=== PATIENT | female | born 1980 | race Caucasian/White ===

== ENCOUNTER 2020-06-06 13:55 | Emergency (ER) | payer OTHER ==
--- NOTE | 2020-06-06 14:20 | EDM.PDOC ---
ED HPI GENERAL MEDICAL PROBLEM - General Chief Complaint: Lower Extremity Injury/Pain Stated Complaint: JOSEFINA MCADAMSY TOE Time Seen by Provider: 06/06/20 14:05 Source of Information: Reports: Patient History Limitations: Reports: No Limitations - History of Present Illness INITIAL COMMENTS - FREE TEXT/NARRATIVE: Patient comes into the emergency department with complaint of a left foot injury. Patient states that she was at home and caught the edge of the wall on her left foot causing a popping and cracking sensation of her fifth left foot digit. Patient states that she felt pain and discomfort right away. She was able to continue ambulating on it however she states that the throbbing and numbness sensation began instantly. She states that it apply ice right away and elevated. She presented to the emergency department for further evaluation for she noticed that she is unable to move it independently and she also notices that some deformity. Patient other injuries or concerns. Patient states she is been relatively healthy and denies any active COVID 19 symptoms or any recent testing. She also denies any chest discomfort, shortness of breath, numbness or tingling, blurred vision, dizziness, lightheadedness, or peripheral edema. Onset: Sudden Location: Reports: Lower Extremity, Left Quality: Reports: Ache, Throbbing Severity: Mild Improves with: Reports: Immobilization Worsens with: Reports: Movement Context: Reports: Activity Associated Symptoms: Reports: No Other Symptoms Left Toe-Little Pain Score (Numeric/FACES): 2 - Related Data Allergies Allergy/AdvReac Type Severity Reaction Status Date / Time No Known Allergies Allergy Verified 06/06/20 14:19 Home Meds: Home Meds . [No Known Home Meds] 06/06/20 [History] ED ROS GENERAL - Review of Systems Review Of Systems: Comprehensive ROS is negative, except as noted in HPI. Constitutional: Reports: No Symptoms HEENT: Reports: No Symptoms Respiratory: Reports: No Symptoms Cardiovascular: Reports: No Symptoms Endocrine: Reports: No Symptoms GI/Abdominal: Reports: No Symptoms : Reports: No Symptoms Skin: Reports: No Symptoms Neurological: Reports: No Symptoms Psychiatric: Reports: No Symptoms Hematologic/Lymphatic: Reports: No Symptoms Immunologic: Reports: No Symptoms ED EXAM, GENERAL - Physical Exam Exam: See Below Exam Limited By: No Limitations General Appearance: Alert, WD/WN, No Apparent Distress Head: Atraumatic, Normocephalic Neck: Normal Inspection, Supple, Full Range of Motion Respiratory/Chest: No Respiratory Distress, No Accessory Muscle Use, Chest Non- Tender Cardiovascular: Normal Peripheral Pulses, Regular Rate, Rhythm, No Edema Peripheral Pulses: 4+: Dorsalis Pedis (L), Dorsalis Pedis (R) Extremities: Normal Range of Motion, Non-Tender, Normal Capillary Refill, Other (left foot- 5th digit- limited range of motion, deformity noted, ecchymosis noted on the proximal digit, and CMS intact ) Neurological: Alert, Oriented, Normal Cognition, Normal Gait Psychiatric: Normal Affect, Normal Mood Skin Exam: Warm, Dry, Intact, Normal Color Course - Vital Signs Last Recorded V/S: Last Vital Signs Temp 36.8 C 06/06/20 14:00 Pulse 86 06/06/20 14:00 Resp 16 06/06/20 14:00 BP 113/77 06/06/20 14:00 Pulse Ox 99 06/06/20 14:00 Departure - Departure Time of Disposition: 14:50 Disposition: Home, Self-Care 01 Condition: Good Clinical Impression: Toe fracture, left Qualifiers: Encounter type: initial encounter Toe: lesser toe Fracture type: closed Phalanx: middle Fracture alignment: displaced Qualified Code(s): S92.522A - Displaced fracture of middle phalanx of left lesser toe(s), initial encounter for closed fracture - Discharge Information *PRESCRIPTION DRUG MONITORING PROGRAM REVIEWED*: Not Applicable *COPY OF PRESCRIPTION DRUG MONITORING REPORT IN PATIENT JANN: Not Applicable Instructions: Toe Fracture, [id number] Forms: ED Department Discharge Additional Instructions: 1. Rest 2. wear splint until cleared from ortho 3. Can use tylenol and ibuprofen as needed for pain and discomfort 4. Diet as tolerated 5. Activity as tolerated 6. Elevated the injured area above the level of the heart to decrease swelling and discomfort. 7. Use ice 3-4 times a day at 20-minute intervals to help with any swelling and discomfort 8. Call Monday to get an appointment with ortho for a 5th digit proximal phalangeal fracture with lateral angulation of the distal fracture fragment 9. Discharge information has been provided regarding your injury Sepsis Event Note (ED) - Focused Exam Vital Signs: Vital Signs Temp Pulse Resp BP Pulse Ox 06/06/20 14:00 36.8 C 86 16 113/77 99 - Assessment/Plan Assessment:: 1. left foot 5th digit fracture 2. left foot pain Plan: 1. X-ray completed in the emergency department results reviewed with the patient 2. Ice Applied to the affected limb 3. Medication offered to the patient- pt denied needing any medication 4. post surgical boot applied 5. Gentle traction and splint with metal splint and coban completed without difficulty. CMS and ROM intact post movement. 6. Education regarding splinting, activity, [id number] medications, and follow-up care provided. 7. All questions and concerns addressed with the patient prior to discharge
--- NOTE | 2020-06-06 14:41 | CR ---
[id number] RAD/RAD Foot Left 3V Min EXAM: RAD Foot Left 3V Min CLINICAL DATA: TRAUMA COMPARISON: NO PREVIOUS SIMILAR EXAM IS AVAILABLE. FINDINGS: A mid diaphyseal fracture of the left fifth proximal phalanx is seen with lateral angulation of the distal fracture fragment. IMPRESSION: LEFT FIFTH PROXIMAL PHALANGEAL FRACTURE Ken Durbin MD 06/06/20 [id number] Thank you for allowing us to participate in the care of your patient.
== END 2020-06-06 14:45 | disposition home or self-care (01) ==
LOC: VM.ED 13:55
DX: S92.522A Displaced fracture of middle phalanx of left lesser toe(s), initial encounter for closed fracture (principal); W23.0XXA Caught, crushed, jammed, or pinched between moving objects, initial encounter; Y92.009 Unspecified place in unspecified non-institutional (private) residence as the place of occurrence of the external cause
CPT/HCPCS: 73630-LT; 99283-25; 99283-GF